=== PATIENT | male | born 1985 | race African-American/Black ===

== ENCOUNTER 2018-10-25 08:15 | Emergency (ER) | payer OTHER ==
[2018-10-25 08:32] VITALS: BP 123/72; PULSE 52; TEMP 97.8; BMI 29.8
--- NOTE | 2018-10-25 08:39 | PDOC ---
History of Present Illness - General Chief Complaint: Injury Stated Complaint: Injury Time Seen by Provider: 10/25/18 08:23 History Source: Patient Exam Limitations: No Limitations - History of Present Illness Initial Comments: 10/25/18 08:23 playing football. injured right shoulder and right index finger 10/25/18 08:41 Occurred: reports: yesterday Severity: reports: mild, moderate Pain Location: reports: upper extremity Method of Injury: Yes: direct blow, fall Associated Symptoms (Fall): denies symptoms Past History - Travel Traveled outside of the country in the last 30 days: No Close contact w/someone who was outside of country & ill: No - Past Medical History Allergies/Adverse Reactions: Allergies Allergy/AdvReac Type Severity Reaction Status Date / Time No Known Allergies Allergy Verified 10/25/18 08:18 Home Medications: Ambulatory Orders Ibuprofen 600 mg PO Q6H PRN #30 tablet 10/25/18 Ibuprofen 600 mg PO Q6H PRN #30 tablet 10/25/18 COPD: No Other medical history: denies - Surgical History Appendectomy: Yes - Immunization History Immunization Up to Date: Yes - Suicide/Smoking/Psychosocial Hx Smoking History: Never smoked Hx Alcohol Use: No Drug/Substance Use Hx: No Review of Systems - Review of Systems Able to Perform ROS?: Yes Is the patient limited Mongolian proficient: Yes Constitutional: Yes: Symptoms Reported, See HPI. No: Fever, Malaise HEENTM: No: Symptoms Reported Respiratory: No: Symptoms reported Musculoskeletal: Yes: Symptoms Reported, See HPI Integumentary: Yes: See HPI. No: Symptoms Reported All Other Systems: Reviewed and Negative *Physical Exam - Vital Signs Last Vital Signs Temp Pulse Resp BP Pulse Ox 97.8 F 52 L 18 123/72 100 10/25/18 08:18 10/25/18 08:18 10/25/18 08:18 10/25/18 08:18 10/25/18 08:18 - Physical Exam General Appearance: Yes: Nourished, Appropriately Dressed, Apparent Distress HEENT: positive: ARON, Normal ENT Inspection, TMs Normal, Pharynx Normal Neck: positive: Supple, Lymphadenopathy (R), Lymphadenopathy (L). negative: Tender Respiratory/Chest: positive: Lungs Clear, Normal Breath Sounds Gastrointestinal/Abdominal: positive: Soft Musculoskeletal: negative: Normal Inspection Extremity: positive: Normal Capillary Refill, Tender, Other (right index finger with deformity at PIP, unable to flex completely but able to flex and extend against resistance. Neurovascular intact distal to PIP). negative: Normal Range of Motion (limited range of motion to abduction only to 90 with tenderness at shoulder capsule. 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 Splinted and recommended follow-up with orthopedist. *DC/Admit/Observation/Transfer Diagnosis at time of Disposition: Sprain of finger, right Qualifiers: Encounter type: initial encounter Finger: index finger Sprain of finger site: interphalangeal joint Qualified Code(s): S63.630A - Sprain of interphalangeal joint of right index finger, initial encounter Shoulder sprain Qualifiers: Encounter type: initial encounter Shoulder sprain type: unspecified sprain Laterality: right Qualified Code(s): S43.401A - Unspecified sprain of right shoulder joint, initial encounter - Discharge Dispostion Disposition: HOME Condition at time of disposition: Stable Decision to Admit order: No - Prescriptions Prescriptions: Ibuprofen 600 mg PO Q6H PRN #30 tablet PRN Reason: Pain Ibuprofen 600 mg PO Q6H PRN #30 tablet PRN Reason: Pain - Referrals Referrals: Bret Hendricks MD [Staff Physician] - - Patient Instructions Printed Discharge Instructions: DI for Finger Sprain, DI for Shoulder Sprain Additional Instructions: Rest, ice to area on and off for 15 minutes 4-6 times a day Avoid heavy lifting or exercise until pain and swelling is resolved or until further directed Keep area highly elevated to reduce swelling Use splints/Inderjit wrap as directed Followup with orthopedist in one to 2 days if not improving, if significantly improved may wait one week for followup with orthopedist May use ibuprofen every 6 hours as needed for pain - Post Discharge Activity Forms/Work/School Notes: Back to Work
== END 2018-10-25 09:15 | disposition home or self-care (01) ==
LOC: JERFT 08:15
PROC: 2W3JX1Z Immobilization of Right Finger using Splint (ICD-10-PCS; principal; 2018-10-25)
DX: S43.401A Unspecified sprain of right shoulder joint, initial encounter (principal); S63.630A Sprain of interphalangeal joint of right index finger, initial encounter; W03.XXXA Other fall on same level due to collision with another person, initial encounter; Y93.61 Activity, american tackle football; Y92.321 Football field as the place of occurrence of the external cause; Y99.8 Other external cause status
CPT/HCPCS: 29130; 73030-TC-RT-FY; 73140-TC-RT-FY; 99281-25